=== PATIENT | male | born 1980 | race Caucasian/White ===

== ENCOUNTER 2018-03-19 00:19 | Emergency (ER) | payer OTHER, MEDICAID, SELFPAY ==
[2018-03-19 00:26] VITALS: BP 137/89; PULSE 96; TEMP 36.6; O2SAT 98; BMI 30.8
--- NOTE | 2018-03-19 01:03 | ED_ITS ---
HPI - Extremity Problem General Chief complaint: Extremity Problem,Nontraumatic Stated complaint: TORN LEFT ELBOW TENDON Time Seen by Provider: 03/19/18 01:02 Source: patient Mode of arrival: ambulatory Limitations: no limitations History of Present Illness HPI Narrative: Patient states he has an ongoing left elbow tendinous injury that he is going to see Ortho for and likely have surgery on. He states that he has had a lot of ongoing pain, that he can't sleep tonight which is why he is here. No new injury. MD Complaint: extremity swelling (Left elbow, chronic) Onset (ago): month(s) (Worse over the past week) Pain Consistency: constant Location: left Severity scale (1-10): 8 Quality: stabbing and aching Radiation: none Relieving factors: nothing Exacerbating factors: range of motion Associated symptoms: denies other symptoms, fever and other (No redness) Context: other (Injury several months ago) Related Data Previous Rx's Medication Instructions Recorded hydrocodone-acetaminophen 1 tab PO Q6H PRN #20 tab 03/19/18 Allergies Allergy/AdvReac Type Severity Reaction Status Date / Time No Known Drug Allergies Allergy Verified 03/19/18 01:21 Review of Systems Review of Systems All systems reviewed & are unremarkable except as noted in HPI and below Constitutional Denies chills, Denies fever(s), Denies lethargy and Denies weakness Eyes Denies change in vision, Denies eye discharge, Denies irritation and Denies loss of vision ENT Ears, Nose, Mouth, and Throat: Denies change in voice, Denies neck pain and Denies sore throat Cardiovascular Denies chest pain, Denies irregular heart rhythm, Denies lightheadedness, Denies palpitations, Denies dyspnea, Denies dyspnea on exertion and Denies orthopnea Respiratory Denies cough, Denies dyspnea, Denies dyspnea on exertion and Denies wheezing Gastrointestinal Gastrointestinal: Denies abdominal pain, Denies change in bowel habits, Denies diarrhea, Denies nausea and Denies vomiting Genitourinary Denies hematuria, Denies flank pain, Denies urinary incontinence and Denies urinary urgency Musculoskeletal Reports joint swelling (Left elbow), Reports limited range of motion (Left elbow ) and Denies neck pain Integumentary/Breasts Denies pruritus, Denies erythema, Denies rash and Denies wounds Neurologic Denies confusion, Denies loss of vision and Denies weakness Psychiatric Denies anxiety, Denies confusion, Denies depression, Denies homicidal ideation and Denies suicidal ideation Endocrine Denies palpitations Hematologic/Lymphatic Denies easy bruising Allergic/Immunologic Denies wheezing [facility] Medical History Elbow joint pain (Acute) Surgical History No pertinent past surgical history (Acute) Social History Smoking Status: Current every day smoker Exam Initial Vital Signs Initial Vital Signs: Vital Signs Temperature 98 F 03/19/18 00:26 Pulse Rate 96 H 03/19/18 00:26 Blood Pressure 137/89 03/19/18 00:26 Pulse Oximetry 98 03/19/18 00:26 Const General: cooperative and well developed Nutritional Appearance: well nourished Orientation: alert, awake, oriented x3 and not confused HENMT Head: normocephalic and atraumatic Ears: external ears normal Nose: external nose normal and No nasal discharge Face and sinus: face symmetric and No dry mucous membranes Mouth: oral mucosae normal and moist mucous membranes Eyes General: appearance normal, both eyes and all related structures Eyelids: eyelids normal Conjunctivae: conjunctivae normal Sclera: sclerae normal Pupils: PERRL EOM: EOM intact bilaterally Neck Neck: normal visual inspection, trachea midline, No lymphadenopathy, No midline deformity and No JVD Lymphatic: No lymphedema Chest Chest: normal inspection of the chest Resp Effort & Inspection: normal respiratory effort, able to speak in complete sentences, no respiratory distress and no use of accessory muscles Auscultation: clear to auscultation bilaterally, no rales, no rhonchi and no wheezes Cardio Rate: regular rate Rhythm: regular rhythm Heart Sounds: no click, no gallops, no murmurs and no rubs Pulses: normal peripheral pulses GI Inspection: non-distended Palpation: soft, no hepatosplenomegaly, No guarding, No pulsatile mass and No tender Auscultation: normal bowel sounds Back/Spine/Pelvis Back: No CVA tenderness Cervical Spine: cervical ROM normal and No pain with cervical ROM Thoracic/Lumbar Spine: thoracic and lumbar spine normal to inspection Skin General: no rashes or lesions noted, No jaundice and No petechiae Neuro General: alert, oriented x3, gait normal and no focal motor deficits Speech: speech normal Extrem General: No full ROM (Decreased range of motion left elbow), no pedal edema and no calf tenderness Other: Diffuse tenderness, left posterior and lateral elbow. No erythema. Minimal edema. Psych Appearance: well kempt Mental Status: mental status grossly normal Attitude: cooperative Thought Content: normal and suicidality Judgment: judgment good Course Course Narrative: I discussed with the patient that I would give him a small prescription for pain medication, but he will need see his own doctor for this from now on. The patient reported that his symptoms were consistent with prior symptoms, and I did not feel any further workup or intervention was indicated. Orders Ordered: Discontinued Medications Hydrocodone Bitart/Acetaminophen ([place] 5/325) 1 tab PO NOW ONE Stop: 03/19/18 01:14 Last Admin: 03/19/18 01:18 Dose: 1 tab Vital Signs - 8 hr 03/19/18 00:26 Temperature 98 F Pulse Rate 96 H Blood Pressure 137/89 Pulse Oximetry 98 MDM - Extremity (Nontraumatic) Medical Records Attestation: I reviewed the patient's medical records. Discharge Plan Departure Patient Disposition: Home Clinical Impression: Elbow joint pain Discharge Date/Time: 03/19/18 01:25 Interventions: ED Discharge Assessment Last Done: 03/19/18 01:40 Instructions: DI for Elbow Pain Activity Restrictions/Additional Instructions: Please follow up with your orthopedist, as scheduled. Prescriptions: New hydrocodone-acetaminophen 5-325 mg tablet 1 tab PO Q6H PRN (Reason: pain) Qty: 20 RF: 0
[2018-03-19] MEDS: HYDROCODONE/ACET 5/325 TABLET 1 TAB PO (01:18)
--- NOTE | 2018-03-19 01:23 | PC.NURSE ---
He drove himself here.He was sent home with one po vicodin per verbal order.also home with a script for more vicodin.
== END 2018-03-19 01:25 | disposition home or self-care (01) ==
PROVIDERS: Emergency Provider Emergency Medicine
DX: M25.552 Pain in left hip (principal)
CPT/HCPCS: 99282; 99283